=== PATIENT | male | born 1975 | race Caucasian/White ===

== ENCOUNTER 2017-02-03 16:23 | Emergency (ER) | payer BC ==
--- NOTE | 2017-02-03 16:21 | EDPHY ---
H & P Constitutional: Initial Vital Signs Temperature (C) 37.4 C 02/03/17 16:23 Heart Rate 84 02/03/17 16:23 Respiratory Rate 22 H 02/03/17 16:23 Blood Pressure 146/72 H 02/03/17 16:23 O2 Sat (%) 97 02/03/17 16:23 O2 Delivery Mode Room Air Allergies/Adverse Reactions: No Known Allergies Allergy (Unverified 07/30/16 20:07) Home Medications: Medication Instructions Recorded inFLIXimab [Remicade Inj 100 mg 0 mg IV .SEE COMMENTS 07/31/16 (*)] Acetaminophen [Tylenol ES 500 mg 1,000 mg PO Q6HRS PRN #0 tab 08/20/16 (*)] Atenolol [Tenormin 25 mg (*)] 12.5 mg PO BID #30 tab 08/20/16 FLUoxetine [Prozac 10 MG (*)] 10 mg PO DAILY #15 cap 08/20/16 FLUoxetine [Prozac 20 MG (*)] 20 mg PO DAILY #15 cap 08/20/16 Pantoprazole Sodium [Protonix 40mg 40 mg PO DAILY #15 tab 08/20/16 (*)] QUEtiapine FUMARATE [Seroquel 50 50 mg PO HS #15 tab 08/20/16 mg (*)] buPROPion XL [Wellbutrin 150mg XL] 150 mg PO DAILY #15 tab 08/20/16 predniSONE 20 mg PO DAILY #15 tab 08/20/16 Medical Decision Making ED Course/Re-evaluation: CHIEF COMPLAINT: Syncope. HISTORY OF PRESENT ILLNESS: The patient is a 41-year-old male presenting via EMS after a syncopal episode earlier today. He is alert and oriented on arrival. He describes feeling flushed and nauseated with visual dimming before letting himself to the floor and passing out. He did not hit his head. He also describes an episode of emesis and diarrhea prior to passing out. He has sharp abdominal pain but this is normal for his UC and IBS. He has a history of similar symptoms from these abdominal issues but has not passed out before. He denies fever, shortness of breath, chest pain, dizziness, or other complaints. EMS administered 4mg IV Zofran and 100ml IV Saline en route. REVIEW OF SYSTEMS: A 10 point review of systems was performed and is negative with the exception of the elements mentioned in the history of present illness. PHYSICAL EXAM: HR, BP, O2 Sat, RR. Temp noted General Appearance: Alert, well hydrated, appropriate, and non-toxic appearing. Head: Atraumatic without scalp tenderness or obvious injury Eyes: Pupils equal, round, reactive to light and accommodation, EOMI, no trauma , no injection. Ears: Clear bilaterally, no perforation, normal landmarks Nose: Atraumatic, no rhinorrhea, clear. Throat: There is no erythema or exudates, no lesions, normal tonsils, mucus membranes moist. Neck: Supple, 2+ carotid upstroke, nontender, no lymphadenopathy. Respiratory: No retractions, no distress, no wheezes, and no accessory muscle use. Lungs are clear to auscultation bilaterally. Cardiovascular: Regular rate and rhythm, no murmurs, rubs, or gallops. Bilateral carotid, radial, dorsalis pedis, and posterior tibial pulses intact. Good capillary refill all extremities. Gastrointestinal: Abdomen is soft, nontender, non-distended, no masses, no rebound, no guarding, no peritoneal signs. Musculoskeletal: Normal active ROM of all extremities, atraumatic. Neurological: Alert, appropriate, and interactive. The patient has normal DTRs and non-focal cranial nerves, motor, sensory, and cerebellar exam. Skin: No rashes, good turgor, no nodules on palpation. Past medical history:Ulcerative colitis, IS. Past surgical history:Denies. Family history:Non-contributory. Social history:Here alone. DIAGNOSTICS/PROCEDURES/CRITICAL CARE TIME: The 12 lead EKG was interpreted by myself. See hard copy and/or "tracemaster" electronic copy for interpretation. Sinus rhythm. Normal QT interval. Early repolarization. DIFFERENTIAL DIAGNOSIS: The differential diagnosis for the patient's syncope included but was not limited to vasovagal syncope, arrhythmia, dehydration, cardiogenic causes, neurogenic causes, and blood loss. MEDICAL DECISION MAKING: I met EMS on arrival and obtained a report from the sales representative electric service. 41-year-old male with a history of IBS and UC. He had a syncopal episode an hour prior to arrival. This was preceded by feeling flushed, visual dimming, nausea, vomiting , and diarrhea. He reports that this is similar to previous UC flare-ups but he does not usually pass out. In fact, he reports that his abdominal issues are improving and he has been taking less of his normal medications. He reports reduced blood in his stools. We will obtain an EKG and basic blood work. 4mg IV Zofran for nausea with 1L IV saline for hydration. I believe this most likely represents a vasovagal event. 1716: Patient's lab work is unremarkable. He is up and able to walk to the bathroom. He still feels a bit lightheaded. 1745: Reassessed patient. He is feeling completely better and is ready to go home. - Data Points Laboratory Results: Laboratory Results 02/03/17 16:25 02/03/17 16:25 02/03/17 02/03/17 16:25 16:25 WBC 7.53 10^3/uL 10^3/uL (3.80-9.50) RBC 5.03 10^6/uL 10^6/uL (4.40-6.38) Hgb 15.1 g/dL g/dL (13.7-17.5) Hct 43.3 % % (40.0-51.0) MCV 86.1 fL fL (81.5-99.8) MCH 30.0 pg pg (27.9-34.1) MCHC 34.9 g/dL g/dL (32.4-36.7) RDW 12.8 % % (11.5-15.2) Plt Count 304 10^3/uL 10^3/uL (150-400) MPV 8.9 fL fL (8.7-11.7) Neut % (Auto) 82.3 % H % (39.3-74.2) Lymph % (Auto) 13.3 % L % (15.0-45.0) Ness % (Auto) 2.9 % L % (4.5-13.0) Eos % (Auto) 0.0 % L % (0.6-7.6) Baso % (Auto) 0.4 % % (0.3-1.7) Nucleat RBC Rel Count 0.0 % % (0.0-0.2) Absolute Neuts (auto) 6.20 10^3/uL 10^3/uL (1.70-6.50) Absolute Lymphs (auto) 1.00 10^3/uL 10^3/uL (1.00-3.00) Absolute Monos (auto) 0.22 10^3/uL L 10^3/uL (0.30-0.80) Absolute Eos (auto) 0.00 10^3/uL L 10^3/uL (0.03-0.40) Absolute Basos (auto) 0.03 10^3/uL 10^3/uL (0.02-0.10) Absolute Nucleated RBC 0.00 10^3/uL 10^3/uL (0-0.01) Immature Gran % 1.1 % % (0.0-1.1) Immature Gran # 0.08 10^3/uL 10^3/uL (0.00-0.10) Sodium 140 mEq/L mEq/L (134-144) Potassium 4.0 mEq/L mEq/L (3.5-5.2) Chloride 102 mEq/L mEq/L (97-110) Carbon Dioxide 24 mEq/l mEq/l (22-31) Anion Gap 14 mEq/L mEq/L (8-16) BUN 12 mg/dL mg/dL (7-23) Creatinine 0.8 mg/dL mg/dL (0.7-1.3) Estimated GFR > 60 Glucose 117 mg/dL H mg/dL (70-100) Calcium 10.0 mg/dL mg/dL (8.5-10.4) Medications Given: Discontinued Medications Sodium Chloride (Ns) 1,000 mls @ 0 mls/hr IV ONCE ONE PRN Reason: Wide Open Stop: 02/03/17 16:30 Last Admin: 02/03/17 16:30 Dose: 1,000 mls Ondansetron HCl (Zofran) 4 mg IVP EDNOW ONE Stop: 02/03/17 16:30 Last Admin: 02/03/17 16:55 Dose: 4 mg Departure - Departure Disposition: Home, Routine, Self-Care Clinical Impression: Vasovagal syncope Condition: Good Instructions: Syncope (ED) Additional Instructions: Drink plenty of fluids and be sure to get rest. Follow up with your primary care provider this week for any continued symptoms. You have been provided the telephone number of the on-call outpatient doctor if you need one. Return to the emergency department if you experience any serious worsening of condition. Referrals: Nasreen Jacobs MD [Medical Doctor] - As per Instructions Report Scribed for: Butch Wakefield Report Scribed by: Micah Nassar Date of Report: 02/03/17 Time of Report: 16:31
[2017-02-03] MEDS ORDERED: ONDANSETRON 4 MG/2 ML VIAL IVP ONE (16:29)
[2017-02-03] MEDS ORDERED: NS 1,000 ML IV ONE (16:29)
--- NOTE | 2017-02-03 16:36 | CPEKG ---
Heart Rate: 64 RR Interval: 938 P-R Interval: 148 QRSD Interval: 82 QT Interval: 396 QTC Interval: 409 P [place]: 62 QRS [place]: 70 T Wave [place]: 63 EKG Severity - ABNORMAL ECG - EKG Impression: SINUS RHYTHM EKG Impression: ST ELEVATION SUGGESTS PERICARDITIS Electronically Signed By: Butch Wakefield 03-Feb-2017 22:11:09
[2017-02-03 16:52] LABS: % IMMATURE GRANULYOCYTES 1.1 % (0.0-1.1); ABSOLUTE IMMATURE GRANULOCYTES 0.08 10^3/uL (0.00-0.10); ADD DIFF? NO; ADD MORPH? NO; ADD SCAN? NO; ATYPICAL LYMPHOCYTE FLAG 10 (0-99); FRAGMENT RBC FLAG 20 (0-99); HEMATOCRIT 43.3 % (40.0-51.0); HEMOGLOBIN 15.1 g/dL (13.7-17.5); LEFT SHIFT FLG 10 (0-99); LIPEMIA HEMOLYSIS FLAG 90 (0-99); MEAN CELL HEMOGLOBIN CONCENTR. 34.9 g/dL (32.4-36.7); MEAN CELL VOLUME 86.1 fL (81.5-99.8); MEAN PLATELET VOLUME 8.9 fL (8.7-11.7); PLATELET CLUMPS FLAG 0 (0-99); PLATELET COUNT 304 10^3/uL (150-400); RED BLOOD CELL COUNT 5.03 10^6/uL (4.40-6.38); RED CELL DISTRIBUTION WIDTH 12.8 % (11.5-15.2)
[2017-02-03 16:53] LABS: ANION GAP 14 mEq/L (8-16); CARBON DIOXIDE 24 mEq/l (22-31); CHLORIDE 102 mEq/L (97-110); CREATININE 0.8 mg/dL (0.7-1.3); GLOMERULAR FILTRATION RATE > 60; GLUCOSE 117 mg/dL (70-100); SODIUM 140 mEq/L (134-144)
[2017-02-03 17:58] VITALS: BP 122/85; PULSE 75; RESP 18; TEMP 98.1; O2SAT 96
== END 2017-02-03 17:56 | disposition home or self-care (01) ==
LOC: EDUNIT#
DX: R55 Syncope and collapse (principal)
CPT/HCPCS: 96374; J2405

== ENCOUNTER → 2017-04-10 | Outpatient (CLI) | payer BC | LOC: FIMAGING 14:54 | PROVIDERS: ATTEND Physician Assistant | DX: R10.11 Right upper quadrant pain (principal) ==

== ENCOUNTER 2017-04-11 13:23 | Observation (INO) | payer BC ==
--- NOTE | 2017-04-11 13:32 | EDPHY ---
H & P Time Seen by Provider: 04/11/17 13:32 HPI/ROS: CHIEF COMPLAINT: Referred to ED from GI clinic HISTORY OF PRESENT ILLNESS: The patient is referred to the emergency department from the GI clinic for on abdominal pain. The patient has a history of ulcerative colitis which was diagnosed approximately 13 years ago. The patient reports he has been tapering on prednisone for approximately the past 2 months. The patient does receive her Remicade infusion every 8 weeks. The patient states that approximately 2 weeks ago he developed right upper quadrant and right rib pain. The patient reports a mild dry cough. The patient denies that this pain is reminiscent of his prior ulcerative colitis. The patient does report that his pain is worsened with palpation to the ribs as well as the abdomen. The patient denies any asymmetric calf pain or swelling. He denies additional complaints. The patient did have unremarkable laboratory studies and a right upper quadrant ultrasound performed yesterday. REVIEW OF SYSTEMS: A comprehensive 10 point review of systems is otherwise negative aside from elements mentioned in the history of present illness. Source: Patient - Personal History Tetanus Vaccine Date: within 10 years (approx 5 yrs) - Medical/Surgical History Hx Asthma: No Hx Chronic Respiratory Disease: No Hx Diabetes: No Hx Cardiac Disease: No Hx Renal Disease: No Hx Cirrhosis: No Hx Alcoholism: No Hx HIV/AIDS: No Hx Splenectomy or Spleen Trauma: No Other PMH: PMH- ulcerative colitis/gerd, DEPRESSION - Social History Smoking Status: Former smoker - Physical Exam Exam: General Appearance: Alert, no distress Eyes: Pupils equal and round no pallor or injection ENT, Mouth: Mucous membranes moist Respiratory: Tenderness to palpation right anterior chest wall Cardiovascular: Regular rate and rhythm Gastrointestinal: Tenderness to palpation right upper quadrant Neurological: A&O, normal motor function, normal sensory exam, normal cranial nerves Skin: Warm and dry, no rashes Musculoskeletal: Neck is supple nontender Extremities: symmetrical, full range of motion Constitutional: Initial Vital Signs Temperature (C) 36.7 C 04/11/17 13:33 Heart Rate 76 04/11/17 13:33 Respiratory Rate 18 04/11/17 13:33 Blood Pressure 105/72 04/11/17 13:33 O2 Sat (%) 97 04/11/17 13:33 O2 Delivery Mode Room Air Allergies/Adverse Reactions: No Known Allergies Allergy (Verified 04/11/17 13:31) Home Medications: Medication Instructions Recorded Acetaminophen [Tylenol 325mg (*)] 325 mg PO DAILY PRN 04/11/17 Cholecalciferol Vit D3 [Vitamin D3 2,000 units PO DAILY 04/11/17 (*)] FLUoxetine [Prozac 20 MG (*)] 60 mg PO DAILY 04/11/17 predniSONE 40 mg PO DAILY 04/11/17 Medical Decision Making - Diagnostics Imaging Results: Imaging Impressions Chest X-Ray 04/11/17 13:48 Impression: Normal. No rib fracture explanation for pain. ED Course/Re-evaluation: The patient presents to the ED with a one-week history of right upper quadrant and right chest wall pain. The patient does have tenderness to palpation in both the right upper quadrant and right chest wall. Patient's vital signs are noted to be stable. I reviewed the results of his laboratory studies from yesterday along with his ultrasound results. Patient was referred to the ED Gastroenterology for further workup including HIDA scan. The patient was taken for a stat chest x-ray which demonstrates no evidence of a rib fracture or pneumothorax. The patient's D-dimer is negative which I feel adequately excludes pulmonary embolism. The patient will be admitted to the hospitalist service for further evaluation of his symptoms per the request of the process control tech. Consultation was made with Dr. Lyons from the hospitalist service. The patient did receive IV fluids, pain medications and Zofran in the ED. Differential Diagnosis: Differential diagnosis considered includes cholelithiasis, cholecystitis, pneumothorax, pulmonary embolism, zoster, rib fracture - Data Points Laboratory Results: 04/11/17 13:50 D-Dimer < 0.27 ug/mLFEU ug/mLFEU (0.00-0.50) Medications Given: Discontinued Medications Morphine Sulfate (Morphine) 4 mg IVP EDNOW ONE Stop: 04/11/17 14:16 Last Admin: 04/11/17 14:15 Dose: 4 mg Departure - Departure Disposition: [facility] Acute Clinical Impression: Abdominal pain, Inflammatory bowel disease, Chest wall pain Condition: Fair
[2017-04-11] MEDS ORDERED: IBUPROFEN 600 MG TAB PO PRN (16:29)
[2017-04-11] MEDS ORDERED: ACETAMINOPHEN 325 MG TAB PO PRN (16:29)
[2017-04-11] MEDS ORDERED: ONDANSETRON DISINTEGRATING 4 MG TAB PO PRN (16:29)
[2017-04-11] MEDS ORDERED: HYDROmorphONE/DILAUDID 1 MG/ML SYR IVP PRN (16:30)
[2017-04-11] MEDS ORDERED: ONDANSETRON 4 MG/2 ML VIAL IVP PRN (16:54)
--- NOTE | 2017-04-11 17:02 | PDGENHP ---
History and Physical - Chief Complaint Acute abdominal pain - History of Present Illness Primary care provider: Dr. Sinha Primary chef concierge: [facility] HPI: 41 yo male presenting with acute abdominal pain characterized as 9/10 severity, attack, located in the right upper quadrant and right flank, onset of symptoms 7 days ago and duration has been intermittent thereafter. Pain is exacerbated by oral intake of solids and liquids as well as deep inspiration. The pain has been somewhat alleviated by pain medication (morphine) received in the emergency department. The patient reports that the location and character of the pain are significantly different than his ulcerative colitis pain. He reports that he had experienced ulcerative colitis flare in January and January was placed on high-dose steroids which have been progressively tapered thereafter. The patient reports that he adjusted his dosage from 60 mg daily to 40 mg daily of prednisone approximately 6 days ago and that his aforementioned pain in his right upper quadrant onset preceded that dose adjustment. 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 History Information - Allergies/Home Medication List Allergies/Adverse Reactions: No Known Allergies Allergy (Verified 04/11/17 13:31) Home Medications: Acetaminophen [Tylenol 325mg (*)] 325 mg PO DAILY PRN 04/11/17 [Last Taken Unknown] Cholecalciferol Vit D3 [Vitamin D3 (*)] 2,000 units PO DAILY 04/11/17 [Last Taken Unknown] FLUoxetine [Prozac 20 MG (*)] 60 mg PO DAILY 04/11/17 [Last Taken 04/10/17] predniSONE 40 mg PO DAILY 04/11/17 [Last Taken 04/10/17] I have personally reviewed and updated: family history, medical history, social history, surgical history - Past Medical History Additional medical history: Ulcerative colitis, currently on Remicade every 8 weeks, currently receiving a prolonged steroid taper. Depression. Gastroesophageal reflux disease - Surgical History Reports: no pertinent surgical hx - Family History Additional family history: No inflammatory bowel disease, he does have family history of coronary disease - Social History Smoking Status: Former smoker Alcohol Use: Occasionally Drug Use: Marijuana Additional social history: Independent in his ADLs, does not have a job which requires strenuous physical activity, he does not engage in heavy lifting but he does have a daughter approximately 22 lb he lifts regularly Review of Systems ROS: 10pt was reviewed & negative except for what was stated in HPI & below Gastrointestinal: Reports: abdominal pain Physical Exam Temp Pulse Resp BP Pulse Ox 36.6 C 72 20 116/69 92 04/11/17 16:09 04/11/17 16:09 04/11/17 16:09 04/11/17 16:09 04/11/17 16:09 Constitutional: appears nourished, uncomfortable, No not in pain (8-9/10 pain), No chronically ill appearing Eyes: PERRL, anicteric sclera, EOMI Ears, Nose, Mouth, Throat: hearing normal, ears appear normal, no oral mucosal ulcers, other (Tacky mucous membranes) Cardiovascular: regular rate and rhythym, no murmur, rub, or gallop, No edema Respiratory: no respiratory distress, no rales or rhonchi, clear to auscultation , other (Reduced inspiratory effort) Gastrointestinal: normoactive bowel sounds, tenderness (Right upper quadrant and right flank, no tenderness to palpation in the right lower quadrant, mild tenderness in the midepigastric area to moderate depth palpation), No guarding, No distension Skin: other (No ecchymoses or erythema over the right upper quadrant) Neurologic: AAOx3, No facial droop Psychiatric: interacting appropriately, not anxious, not encephalopathic, thought process linear Lab Data & Imaging Review D-Dimer < 0.27 ug/mLFEU (0.00-0.50) 04/11/17 13:50 Visualized and Interpreted Chest x-ray results: Yes Chest X-Ray results: other (No evidence of rib fracture on the right, no right lower lobe airspace disease) Assessment & Plan Assessment: 41-year-old male presenting with acute abdominal pain in the setting of inflammatory bowel disease, ulcerative colitis Plan: 1. Abdominal pain. Acute, new problem this provider, further workup indicated. Potential etiologies include gallbladder obstruction versus identified bowel pathology on the right with possible expansion of ulcerative colitis -suspect leukocytosis secondary to stress demargination in the setting -the patient reports that his present location and character pain are different than his historical left lower quadrant pain from ulcerative colitis -will get a HIDA scan to evaluate biliary function -if HIDA scan negative, would recommend CT with oral and IV contrast at that time -will get GI consultation -treat supportively with Dilaudid, as-needed NSAIDs, as needed antiemetics -continue IV fluids, clear liquid diet -apply heat pad and Lidoderm patch 2. Ulcerative colitis. Chronic, currently on prolonged steroid taper as well as outpatient Remicade -do not suspect this is currently an ulcerative colitis flare given the difference in location and character as well as negative CRP and ESR -that said, it should be noted that on review of outside lab records from January, the patient's sed rate and CRP were also within normal limits when he reportedly experienced his classic ulcerative colitis flare and received high- dose steroids with prolonged taper 3. Depression. Reviewed outside records including 08/21/[address] Green, she reported increasing the patient's Prozac at that time utilizing as-needed Seroquel 50 mg at bedtime if the patient experiences difficulty sleeping Diet. Clear liquids next prophylaxis. Low risk patient, SCDs Code. Full Disposition. Anticipated discharge is 04/12/2017, pending further workup and effective treatment of conditions as outlined above. I have discussed the patient's presentation with Dr. Jeffery Vizcarra, we agreed the patient is safe for the EACU.
[2017-04-11] MEDS: predniSONE 20 MG TAB PO SCH (17:28)
[2017-04-11] MEDS: FLUoxetine 20 MG CAP PO SCH (17:28)
[2017-04-11] MEDS: KETOROLAC 15 MG/1 ML SDV IVP PRN (17:29)
[2017-04-11] MEDS: LIDOCAINE 5% 1 EA PATCH TD SCH (17:29)
[2017-04-11] MEDS: PROMETHAZINE HCL 25 MG TAB PO PRN (17:42)
[2017-04-11] MEDS: PATCH REMOVAL 1 EA PATCH TD SCH (19:31)
[2017-04-12] MEDS: KETOROLAC 15 MG/1 ML SDV IVP PRN ×3 (00:24→12:11)
[2017-04-12] MEDS: NS 1,000 ML IV SCH ×2 (00:30→05:32)
[2017-04-12 05:38] LABS: ADD DIFF? YES; ADD MORPH? NO; ADD SCAN? NO; ATYPICAL LYMPHOCYTE FLAG 0 (0-99); FRAGMENT RBC FLAG 0 (0-99); HEMATOCRIT 40.7 % (40.0-51.0); HEMOGLOBIN 13.8 g/dL (13.7-17.5); LEFT SHIFT FLG 30 (0-99); LIPEMIA HEMOLYSIS FLAG 90 (0-99); MEAN CELL HEMOGLOBIN 29.9 pg (27.9-34.1); MEAN CELL HEMOGLOBIN CONCENTR. 33.9 g/dL (32.4-36.7); MEAN CELL VOLUME 88.3 fL (81.5-99.8); MEAN PLATELET VOLUME 8.8 fL (8.7-11.7); PLATELET CLUMPS FLAG 0 (0-99); PLATELET COUNT 197 10^3/uL (150-400); RED BLOOD CELL COUNT 4.61 10^6/uL (4.40-6.38)
[2017-04-12 05:55] LABS: ALANINE AMINOTRANSFERASE 39 IU/L (21-72); ALBUMIN 3.2 g/dL (3.5-5.0); ALKALINE PHOSPHATASE 36 IU/L (38-126); ANION GAP 4 mEq/L (8-16); ASPARTATE AMINOTRANSFERASE 19 IU/L (17-59); BILIRUBIN,TOTAL 0.6 mg/dL (0.1-1.4); CALCIUM 8.4 mg/dL (8.5-10.4); CARBON DIOXIDE 25 mEq/l (22-31); CHLORIDE 107 mEq/L (97-110); CREATININE 0.6 mg/dL (0.7-1.3); GLOMERULAR FILTRATION RATE > 60; GLUCOSE 98 mg/dL (70-100); POTASSIUM 4.8 mEq/L (3.5-5.2); SODIUM 136 mEq/L (134-144); TOTAL PROTEIN 5.7 g/dL (6.3-8.2)
[2017-04-12 06:10] LABS: PLATELET ESTIMATE ADEQUATE (ADEQ)
[2017-04-12] MEDS: PROMETHAZINE HCL 25 MG TAB PO PRN (12:15)
[2017-04-12] MEDS: HYDROmorphONE/DILAUDID 2 MG TAB PO PRN ×3 (13:04→23:00)
[2017-04-12] MEDS: LIDOCAINE 5% 1 EA PATCH TD SCH (13:05)
[2017-04-12 14:47] LABS: COLOR YELLOW; LEUKOCYTE ESTERASE,URINE NEGATIVE (NEGATIVE); NITRITE,URINE NEGATIVE (NEGATIVE)
[2017-04-12] MEDS ORDERED: IOPAMIDOL (ISOVUE-300) 100 ML BTL ONE (16:27)
[2017-04-12] MEDS ORDERED: BUPIVACAINE/EPI 0.5% 30 ML SDV ONE (18:09)
[2017-04-12] MEDS: FLUoxetine 20 MG CAP PO SCH ×2 (18:10→23:22)
[2017-04-12] MEDS: CHOLECALCIFEROL VIT D3 1,000 UNITS TAB PO SCH (18:10)
[2017-04-12] MEDS: predniSONE 20 MG TAB PO SCH (18:11)
--- NOTE | 2017-04-12 18:11 | HOSPPROG ---
Hospitalist Progress Note Assessment/Plan: The patient is a 41-year-old male with PMH ulcerative colitis who was admitted for right upper quadrant abdominal pain/right flank pain. ASSESSMENT/PLAN: Acute appendicitis Right upper quadrant abdominal pain Right flank pain Ulcerative colitis, not in acute flare Depression -Checked UA - ruled out blood in urine, as kidney stone was in DDx. -CT abd demonstrated appendicitis -Dr. Hernandez - Gen Surg - consulted - lap appendectomy tonight. -NPO, resume IVF. -Planning for colonoscopy this week with his GI doctor - re: UC poorly controlled diarrhea. -Discussed that patients w/ UC can have PSC, but patient has no other lab abnormalities to suggest that. VTE prophylaxis: Ambulatory GI prophylaxis: Not needed Code Status: Full Status: Inpatient for 2 midnight stay. Disposition: [facility] with discharge anticipated tomorrow after surgery. ____ SUBJECTIVE: The patient continues to complain of right upper quadrant abdominal pain, right flank pain, right shoulder blade pain. No nausea or vomiting. OBJECTIVE: Physical Exam: General: The patient is a male who is alert fatigued-appearing and in no acute distress. HEENT: normocephalic, extraocular movements intact, conjunctivae clear. Mucous membranes moist. Neck: trachea midline, no visible masses. CV: +S1/S2, RRR, no MRG. Resp: unlabored, CTAB no RRW. Abd: soft and nondistended. Bowel sounds present. tender right upper quadrant, right lower ribcage. Musculoskeletal: Normal muscle tone/bulk. Normal gait. Tenderness of right scapula, right flank. Neuro: cranial nerves II XII grossly intact. Intact gross motor and sensory function. Psych: Appropriate mood and appropriate affect. Skin: No pallor. No petechiae. Heme/lymph: No peripheral edema at bilateral lower extremities. Labs/Imaging/Other Tests: Personally reviewed/interpreted. CT Abd w/ contrast - early appendicitis. This patient is new to me. Reviewed patient's chart/records for this visit. Personally discussed case with RNs, radiologist, general surgeon. Objective: Vital Signs Temp Pulse Resp BP Pulse Ox 36.6 C 63 18 107/68 96 04/12/17 15:59 04/12/17 15:59 04/12/17 15:59 04/12/17 15:59 04/12/17 15:59 Laboratory Results 04/12/17 04:45 05/13/17 04:45 04/11/17 04/12/17 04/13/17 05:59 05:59 05:59 Intake Total 3158 Balance 3158 - Time Spent With Patient Time Spent with Patient: greater than 35 minutes Time Spent with Patient: Greater than 35 minutes spent on this patients care, greater than 50% of time spent counseling, educating, and coordinating care regarding the above mentioned plan. - Pending Discharge Pending Discharge Within 24 Hours: Yes Pending Discharge Date: 04/13/17 Pending Discharge Time: 11:00 ICD10 Worksheet Patient Problems: Problems Problem Status Onset Abdominal pain Acute Chest wall pain Acute Inflammatory bowel disease Acute Depression Acute Suicidal ideation Acute
[2017-04-12] MEDS ORDERED: MIDAZOLAM 2 MG/2 ML VIAL ONE (18:36)
[2017-04-12] MEDS ORDERED: fentaNYL 100 MCG/2 ML INJ ONE ×2 (18:39→19:32)
[2017-04-12] MEDS ORDERED: PROPOFOL 200 MG/20 ML VIAL ONE (18:39)
[2017-04-12] MEDS ORDERED: ROCURONIUM 50 MG/5 ML VIAL ONE (18:40)
[2017-04-12] MEDS ORDERED: SUGAMMADEX SODIUM 200 MG/2 ML VIAL IVP ONE (18:40)
[2017-04-12] MEDS ORDERED: ONDANSETRON 4 MG/2 ML VIAL ONE (18:40)
[2017-04-12] MEDS ORDERED: LIDOCAINE 2% 5 ML SDV ONE (18:40)
[2017-04-12] MEDS ORDERED: DEXAMETHASONE 4 MG/ML VIAL ONE ×2 (18:40)
[2017-04-12] MEDS ORDERED: KETOROLAC 30 MG/1 ML SDV ONE (18:52)
--- NOTE | 2017-04-12 19:03 | GHP ---
[f rep st] PREOP HISTORY AND PHYSICAL DATE OF ADMISSION: 04/11/2017 REASON FOR EVALUATION: Acute appendicitis. HISTORY OF PRESENT ILLNESS: 41-year-old male with a significant history for ulcerative colitis. He has been maintained on Remicade and prednisone for multiple years. He has been on a long steroid taper since January for a chronic flare, mostly inclusive of left lower quadrant pain and intermittent bloody bowel movements. He does report intermittent nighttime fevers and chills, none of which have been worsening over the last couple of months. He presented to the hospital last evening with a 1-week history of right upper quadrant pain as well as right back pain. He initially thought might be related to a kidney stone. He was initially worked up inclusive of right upper quadrant ultrasound and HIDA imaging, all showing normal gallbladder anatomy. Subsequent CT scan was performed this afternoon, disclosing a dilated appendix with periappendiceal inflammatory change. Surgery has been requested for further treatment recommendations. One quasi similar episode of pain 2 years prior of less intensity. He does note that the car ride was especially uncomfortable over bumps. He is minimally hungry at present time. PAST MEDICAL HISTORY: Ulcerative colitis, depression, GERD. PAST SURGICAL HISTORY: PE tube placement. MEDICATIONS: Remicade, prednisone 40 mg, Prozac, vitamin D, Tylenol. ALLERGIES: No known allergies. SOCIAL HISTORY: No significant alcohol or tobacco. He is currently . He has 6 children. 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 REVIEW OF SYSTEMS: Notable for chronic abdominal pain, blood per rectum, and intermittent joint aches. No other ulcerative colitis related sequelae. 10- point system otherwise unremarkable. FAMILY HISTORY: Noncontributory. PHYSICAL EXAMINATION: VITALS: Temperature 36.6, blood pressure 107/68, pulse 63, respirations 18. GENERAL: The patient is alert, appropriate, pale in appearance. HEENT: Anicteric. No cervical or supraclavicular lymphadenopathy. HEART: Regular. LUNGS: Clear. ABDOMEN : Significant right -sided tenderness without rebound or guarding. Negative Rovsing sign. Negative obturator sign. EXTREMITIES: Unremarkable. NEUROLOGIC: Unremarkable. SKIN: With a 1 cm seborrheic keratosis to the midepigastrium. LABORATORY DATA: White count 9.5, hemoglobin 14, platelets of 200. Electrolytes within reference range. Liver enzymes within reference range. CT images directly reviewed on PACS. 10 mm appendix noted with mild periappendiceal inflammatory change. No free fluid. No free air. HIDA scan: 42% gallbladder ejection fraction. Right upper quadrant ultrasound with multiple gallbladder polyps measured between 2 and 4 mm with a stable right hepatic cyst. IMPRESSION: 1. Early appendicitis. 2. Ulcerative colitis. 3. Gallbladder polyps. RECOMMENDATIONS: 1. Recommend proceeding with laparoscopic appendectomy. The risks, benefits were explained of bleeding, infection, open conversion, as well as alternative diagnoses. He has requested that his abdominal wall skin lesion be excised concurrently. Surgical risks and benefits, as well as anticipated recovery reviewed. All questions entertained. Will proceed this evening. 2. Regarding his small benign appearing gallbladder polyps, no further workup warranted at this point in time. /[id number]/MODL MTDD
[2017-04-12] MEDS ORDERED: HYDROmorphONE/DILAUDID 1 MG/ML SYR ONE (20:05)
[2017-04-12] MEDS ORDERED: HYDROmorphONE/DILAUDID 1 MG/ML SYR IVP PRN (20:24)
--- NOTE | 2017-04-12 20:24 | POSTOPPROG ---
Post Op Note Date of Operation: 04/12/17 Surgeon: Israel Hernandez Anesthesiologist: Vidya Anesthesia: GET(General Endotracheal) Pre-op Diagnosis: acute appendicitis Post-op Diagnosis: same Procedure: lap appy Inf/Abcess present in the surg proc area at time of surgery?: Yes Depth: Organ Space EBL: Minimal Complications: no immediate Specimen(s): appendix
--- NOTE | 2017-04-12 20:40 | GOP ---
[f rep st] OPERATIVE REPORT DATE OF OPERATION: 04/12/2017 SURGEON: Israel Hernandez MD ANESTHESIA: General. ANESTHESIOLOGIST: Dr. Dasilva. PREOPERATIVE DIAGNOSIS: Acute appendicitis, multiple abdominal wall skin lesion. POSTOPERATIVE DIAGNOSIS: Acute appendicitis, multiple abdominal wall skin lesion. PROCEDURE PERFORMED: 1. Laparoscopic appendectomy. 2. Excision of abdominal wall skin lesions. FINDINGS: As below. INDICATIONS: 41-year-old male with acute appendicitis. He is undergoing a laparoscopic appendectomy at this time. Risks and benefits were explained of bleeding, infection, open conversion, as well as alternative diagnoses. All questions were entertained. He desires to proceed. The patient has multiple central abdominal wall clinical keratoses in line with necessary trocar incision placements. These will be excised simultaneously. DESCRIPTION OF PROCEDURE: General anesthesia was induced. The abdomen was preinjected with 0.5% Marcaine with epinephrine. A curvilinear infraumbilical incision was created. The midline fascia was opened vertically. A 10 mm trocar was placed under direct visualization. The abdomen was insufflated to 15 mmHg. Two additional 5 mm ports were placed, one in the right lower mid abdomen and the other within the left lower quadrant. Three overlying keratoses were present at these sites. These were all excised using electrocautery and sent as separate specimens prior to 5 mm trocar placements. The appendix was acutely thickened without suppuration or perforation. The mesoappendix was divided with the Harmonic Scalpel. The base was transected flush with the cecum with an endoscopic ZHEN stapler. The specimen was brought through the umbilical port site intact using an EndoCatch pouch. Satisfactory hemostasis was assured. The right upper quadrant was explored showing a normal liver with a small simple-appearing hepatic cyst as well as a normal-appearing gallbladder without thickening or pericholecystic fluid. Trocars were removed under direct visualization. The infraumbilical midline fascia was closed with running Vicryl suture. The wounds were closed with Monocryl followed by Dermabond. The patient was taken to recovery uneventfully. /[id number]/MODL MTDD
[2017-04-12] MEDS: HYDROCODONE/APAP 5/325 TAB PO PRN (21:29)
[2017-04-12] MEDS: FAMOTIDINE 20 MG TAB PO SCH (21:29)
[2017-04-13 00:38] VITALS: RESP 16
[2017-04-13] MEDS: HYDROCODONE/APAP 5/325 TAB PO PRN ×3 (01:33→10:06)
[2017-04-13] MEDS: PATCH REMOVAL 1 EA PATCH TD SCH (02:00)
[2017-04-13] MEDS: HYDROmorphONE/DILAUDID 2 MG TAB PO PRN ×3 (03:08→11:33)
[2017-04-13 07:32] VITALS: BP 111/74; PULSE 63; TEMP 97.8; O2SAT 96
[2017-04-13] MEDS: LIDOCAINE 5% 1 EA PATCH TD SCH (08:00)
--- NOTE | 2017-04-13 08:17 | SOAPPROG ---
SOAP Progress Note Assessment/Plan: Assessment:no c/o. min further abdominal pain. mild residual costal discomfort - improved as well. avss. abd soft, incis clean. doing well. home today. d/ w hospitalist service. Plan: 04/13/17 08:16 Objective: Vital Signs Temp Pulse Resp BP Pulse Ox 36.6 C 63 16 111/74 96 04/13/17 07:30 04/13/17 07:30 04/13/17 07:30 04/13/17 07:30 04/13/17 07:30 Laboratory Results 04/12/17 04:45 04/12/17 04:45 04/12/17 04/13/17 04/14/17 05:59 05:59 05:59 Intake Total 3152 2450 Output Total 10 Balance 3150 4868 ICD10 Worksheet Patient Problems: Problems Problem Status Onset Abdominal pain Acute Chest wall pain Acute Inflammatory bowel disease Acute Depression Acute Suicidal ideation Acute
--- NOTE | 2017-04-13 08:30 | GDS ---
[f rep st] DISCHARGE SUMMARY REASON FOR ADMISSION: Acute appendicitis. HISTORY: A 41-year-old male with a significant history for ulcerative colitis. He presents with a 1-week history of right upper quadrant abdominal pain. HOSPITAL COURSE: Initial workup for gallbladder pathology was nonrevealing. A subsequent CT scan d isclosed early appendicitis. He underwent uncomplicated laparoscopic appendectomy. He was discharged to home the following day in a significantly improved condition. His generalized abdominal pain had resolved. He had minimal residual right-sided subcostal discomfort which was mar kedly improved. He will be seen in followup by Dr. Hernandez in 1-2 weeks. He was to resume all pre-hosp ital medications. He was given prescriptions for [place] as needed for discomfort. Full discharge in structions were explained prior to leaving. /[id number]/MODL
[2017-04-13] MEDS: CHOLECALCIFEROL VIT D3 1,000 UNITS TAB PO SCH (09:24)
[2017-04-13] MEDS: predniSONE 20 MG TAB PO SCH (09:25)
[2017-04-13] MEDS: FAMOTIDINE 20 MG TAB PO SCH (09:33)
[2017-04-13] MEDS: FLUoxetine 20 MG CAP PO SCH ×2 (10:05→10:06)
== END 2017-04-13 12:00 | disposition home or self-care (01) ==
LOC: F1N 15:46 → FOB 04-12 20:24
PROVIDERS: ADMIT Internal Medicine; ATTEND Internal Medicine
PROC: 0DTJ4ZZ Resection of Appendix, Percutaneous Endoscopic Approach (ICD-10-PCS; principal; 2017-04-11)
DX: K35.80 Unspecified acute appendicitis (principal); K51.90 Ulcerative colitis, unspecified, without complications; Z79.52 Long term (current) use of systemic steroids; K21.9 Gastro-esophageal reflux disease without esophagitis; Z87.891 Personal history of nicotine dependence
CPT/HCPCS: 44970; 71020; 74160; 78227; A9537; C1727; G0378; 96374; J1100; J1170; J1885; J2250; J2405; J2704; J3010; Q9967

== ENCOUNTER 2017-04-23 12:42 | Inpatient (IN) | payer BC ==
--- NOTE | 2017-04-23 13:00 | EDPHY ---
H & P Stated Complaint: appy 1 week ago/pt with intractible n/v constipation - Personal History Current Tetanus/Diphtheria Vaccine: Yes Tetanus Vaccine Date: within 10 years (approx 5 yrs) - Medical/Surgical History Hx Asthma: No Hx Chronic Respiratory Disease: No Hx Diabetes: No Hx Cardiac Disease: No Hx Renal Disease: No Hx Cirrhosis: No Hx Alcoholism: No Hx HIV/AIDS: No Hx Splenectomy or Spleen Trauma: No Other PMH: PMH- ulcerative colitis/gerd, DEPRESSION - Social History Smoking Status: Former smoker Time Seen by Provider: 04/23/17 12:59 HPI/ROS: CHIEF COMPLAINT: Abdominal pain HISTORY OF PRESENT ILLNESS: 41-year-old male postop day [address] Israel Hernandez arrives via private vehicle complaining of abdominal pain, vomiting, retching since 3:00 a.m. today. He notes that 2 days ago he had mild abdominal pain without the retching. Pain seems to be in the right upper quadrant. No back or flank pain. No urinary abnormality. No dyspnea no cough. PRIMARY CARE PROVIDER: REVIEW OF SYSTEMS: A ten point review of systems was performed and is negative with the exception of the items mentioned in the HPI PAST MEDICAL & SURGICAL HISTORY: Ulcerative colitis. Postop day 9 appendectomy SOCIAL HISTORY: nonsmoker PHYSICAL EXAM (Prior to examination, patient consented to physical exam, hands were washed and my usual and customary physical exam procedures followed) 1) GENERAL: Well-developed, well-nourished, alert and oriented. Appears uncomfortable, guarding abdomen, retching . 2) HEAD: Normocephalic, atraumatic 3) HEENT: Pupils equal, round, reactive to light bilaterally. Sclera anicteric. 4) NECK: Full range of motion, no meningeal signs. 5) LUNGS: Clear auscultation bilaterally, no wheezes, no rhonchi, no retractions. 6) HEART: Regular rate and rhythm, no murmur, no heave, no gallop. 7) ABDOMEN: guarding abdomen, diffusely tender to palpation all quadrants. Abdomen is flat. , 8) MUSCULOSKELETAL: Moving all extremities, no focal areas of tenderness, no obvious trauma. No peripheral edema or discoloration. 9) BACK: No CVA tenderness. 10) SKIN: No rash, no petechiae. 11) : Normal male external genitalia bilateral cremasteric reflex present and brisk. no high-riding testicle, no tenderness DIFFERENTIAL DIAGNOSIS: in no particular order including but not limited to acute cholecystitis, intra-abdominal abscess, ulcerative colitis exacerbation (Yuan Villagomez) Constitutional: Initial Vital Signs Temperature (C) 36.8 C 04/23/17 12:50 Heart Rate 63 04/23/17 12:50 Respiratory Rate 26 H 04/23/17 12:50 Blood Pressure 112/77 04/23/17 12:50 O2 Sat (%) 100 04/23/17 12:50 O2 Delivery Mode Nasal Cannula O2 (L/minute) 2 Allergies/Adverse Reactions: No Known Allergies Allergy (Verified 04/23/17 12:47) Home Medications: Medication Instructions Recorded FLUoxetine [Prozac 20 MG (*)] 60 mg PO DAILY 04/11/17 predniSONE 40 mg PO DAILY 04/11/17 Esomeprazole Magnesium [Nexium] 20 mg PO DAILY 04/23/17 Medical Decision Making - Diagnostics Imaging Results: Imaging Impressions Abdomen CT 04/23/17 13:33 Impression: 1. Recent appendectomy without evidence of abscess, fluid collection, or pneumoperitoneum. 2. Hepatic cysts without hepatic abscess. Findings and recommendations discussed with Emergency Department physician, Jose Angel Villagomez PA-C at 1408 hours on April 23, 2017. Final report concurs with initial preliminary interpretation. Images reviewed by myself (Yuan Villagomez) ED Course/Re-evaluation: 2:17 p.m.: Re-evaluation, discussed his imaging results showing no evidence of intra-abdominal abscess or definitive pathology for his pain. He continues to retch is complaining of continued pain. Will contact Dr. Israel Hernandez re- evaluated. 2:20 p.m.: Phone consultation with Dr. Israel Hernandez, explained the CT findings showing no intra-abdominal pathology such as intra-abdominal abscess. Dr. Hernandez thinks unlikely surgical etiology for his symptoms. Care this patient's discussed with secondary supervising physician Dr. Gilda Eckert 3:15 p.m.: Re-evaluation after IV ketamine, patient continues to retching complaining of intractable pain and vomiting. Will administer IV Haldol and re- evaluate. 4:07 p.m.: Patient re-evaluated. He has received IV ketamine, IV Haldol, Zofran, Reglan, continues to complain of intractable abdominal pain intractable vomiting and retching. 4:13 p.m.: Phone consultation with hospitalist Dr. John Varghese who will admit patient for intractable vomiting and abdominal pain of unclear etiology (Yuan Villagomez) Other Provider: The patient was evaluated and managed by the physician autopsy assistant. I have reviewed this chart and I agree with the findings and plan of care as documented , as indicated by my signature. I am the secondary supervising physician. ( Gilda Eckert) - Data Points Laboratory Results: Laboratory Results 04/23/17 13:06 04/23/17 13:06 04/23/17 04/23/17 04/23/17 13:06 13:06 13:06 WBC 14.53 10^3/uL H 10^3/uL (3.80-9.50) RBC 5.68 10^6/uL 10^6/uL (4.40-6.38) Hgb 17.3 g/dL g/dL (13.7-17.5) Hct 48.7 % % (40.0-51.0) MCV 85.7 fL fL (81.5-99.8) MCH 30.5 pg pg (27.9-34.1) MCHC 35.5 g/dL g/dL (32.4-36.7) RDW 12.7 % % (11.5-15.2) Plt Count 320 10^3/uL 10^3/uL (150-400) MPV 8.7 fL fL (8.7-11.7) Neut % (Auto) Not Reported Lymph % (Auto) Not Reported [place] % (Auto) Not Reported Eos % (Auto) Not Reported Baso % (Auto) Not Reported Nucleat RBC Rel Count 0.0 % % (0.0-0.2) Absolute Neuts (auto) Not Reported Absolute Lymphs (auto) Not Reported Absolute Monos (auto) Not Reported Absolute Eos (auto) Not Reported Absolute Basos (auto) Not Reported Absolute Nucleated RBC 0.00 10^3/uL 10^3/uL (0-0.01) Immature Gran % Not Reported Seg Neutrophils % 67 % % Band Neutrophils % 1 % % Lymphocytes % 22 % % Monocytes % 7 % % Eosinophils % 2 % % Metamyelocytes % 1 % % Immature Gran # Not Reported Absolute Seg Neuts 9.74 10^/uL H 10^/uL (1.70-6.50) Absolute Band Neuts 0.15 10^3/uL 10^3/uL (0.00-0.70) Absolute Lymphocytes 3.20 10^3/uL H 10^3/uL (1.00-3.00) Absolute Monocytes 1.02 10^3/uL H 10^3/uL (0.30-0.80) Absolute Eosinophils 0.29 10^3/uL 10^3/uL (0.03-0.40) Absolute Metamyelocyte 0.15 10^3/mL H 10^3/mL (0.00-0.00) RBC/WBC/PLT Morphology NORMAL (NORMAL) Platelet Estimate ADEQUATE (ADEQ) D-Dimer < 0.27 ug/mLFEU ug/mLFEU (0.00-0.50) Sodium 142 mEq/L mEq/L (134-144) Potassium 4.3 mEq/L mEq/L (3.5-5.2) Chloride 105 mEq/L mEq/L (97-110) Carbon Dioxide 18 mEq/l L mEq/l (22-31) Anion Gap 19 mEq/L H mEq/L (8-16) BUN 12 mg/dL mg/dL (7-23) Creatinine 0.9 mg/dL mg/dL (0.7-1.3) Estimated GFR > 60 Glucose 166 mg/dL H mg/dL (70-100) Calcium 10.8 mg/dL H mg/dL (8.5-10.4) Phosphorus 2.5 mg/dL mg/dL (2.5-4.5) Total Bilirubin 1.5 mg/dL H mg/dL (0.1-1.4) Conjugated Bilirubin 0.5 mg/dL mg/dL (0.0-0.5) Unconjugated Bilirubin 1.0 mg/dL mg/dL (0.0-1.1) AST 25 IU/L IU/L (17-59) ALT 40 IU/L IU/L (21-72) Alkaline Phosphatase 61 IU/L IU/L (38-126) Total Protein 8.2 g/dL g/dL (6.3-8.2) Albumin 5.3 g/dL H g/dL (3.5-5.0) Lipase 133.0 IU/L IU/L (23-300) Medications Given: Discontinued Medications Haloperidol Lactate (Haldol Injection) 2.5 mg IVP EDNOW ONE Stop: 04/23/17 15:04 Last Admin: 04/23/17 15:09 Dose: 2.5 mg Hydromorphone HCl (Dilaudid) 1 mg IVP ONCE ONE Stop: 04/23/17 17:05 Last Admin: 04/23/17 17:06 Dose: 1 mg Sodium Chloride (Ns) 1,000 mls @ 0 mls/hr IV ONCE ONE PRN Reason: Wide Open Stop: 04/23/17 13:36 Last Admin: 04/23/17 13:53 Dose: 1,000 mls Sodium Chloride (Ns) 1,000 mls @ 0 mls/hr IV ONCE ONE PRN Reason: Wide Open Stop: 04/23/17 15:05 Last Admin: 04/23/17 15:09 Dose: 1,000 mls Ketamine HCl (Ketamine) 14.5 mg 0.2 mg/kg (14.5 mg) IVP EDNOW ONE Stop: 04/23/17 14:22 Last Admin: 04/23/17 14:30 Dose: 14.5 mg Lorazepam (Ativan Injection) 1 mg IVP EDNOW ONE Stop: 04/23/17 13:17 Last Admin: 04/23/17 13:34 Dose: 1 mg Magnesium Citrate (Magnesium Citrate) 300 ml PO ONCE STA Stop: 04/23/17 21:43 Last Admin: 04/23/17 22:12 Dose: 300 ml Metoclopramide HCl (Reglan Injection) 10 mg IVP EDNOW ONE Stop: 04/23/17 13:17 Last Admin: 04/23/17 13:34 Dose: 10 mg Ondansetron HCl (Zofran) 4 mg IVP EDNOW ONE Stop: 04/23/17 14:54 Last Admin: 04/23/17 14:54 Dose: 4 mg Departure - Departure Disposition: [facility] Acute Clinical Impression: Intractable abdominal pain Intractable vomiting Qualifiers: Vomiting type: unspecified Nausea presence: with nausea Qualified Code(s): R11.2 - Nausea with vomiting, unspecified Condition: Fair
[2017-04-23] MEDS ORDERED: ONDANSETRON 4 MG/2 ML VIAL ONE (13:08)
[2017-04-23] MEDS ORDERED: LORazepam 2 MG/ML INJ IVP ONE (13:16)
[2017-04-23] MEDS ORDERED: METOCLOPRAMIDE 10 MG/2 ML VIAL IVP ONE (13:16)
[2017-04-23 13:22] LABS: ADD DIFF? YES; ADD MORPH? NO; ADD SCAN? NO; ATYPICAL LYMPHOCYTE FLAG 0 (0-99); FRAGMENT RBC FLAG 0 (0-99); HEMATOCRIT 48.7 % (40.0-51.0); HEMOGLOBIN 17.3 g/dL (13.7-17.5); LEFT SHIFT FLG 40 (0-99); LIPEMIA HEMOLYSIS FLAG 90 (0-99); MEAN CELL HEMOGLOBIN 30.5 pg (27.9-34.1); MEAN CELL HEMOGLOBIN CONCENTR. 35.5 g/dL (32.4-36.7); MEAN CELL VOLUME 85.7 fL (81.5-99.8); MEAN PLATELET VOLUME 8.7 fL (8.7-11.7); PLATELET CLUMPS FLAG 20 (0-99); PLATELET COUNT 320 10^3/uL (150-400); RED BLOOD CELL COUNT 5.68 10^6/uL (4.40-6.38); RED CELL DISTRIBUTION WIDTH 12.7 % (11.5-15.2)
[2017-04-23 13:31] LABS: ALANINE AMINOTRANSFERASE 40 IU/L (21-72); ALBUMIN 5.3 g/dL (3.5-5.0); ALKALINE PHOSPHATASE 61 IU/L (38-126); ANION GAP 19 mEq/L (8-16); ASPARTATE AMINOTRANSFERASE 25 IU/L (17-59); BILIRUBIN,TOTAL 1.5 mg/dL (0.1-1.4); BILIRUBIN-CONJUGATED 0.5 mg/dL (0.0-0.5); CALCIUM 10.8 mg/dL (8.5-10.4); CARBON DIOXIDE 18 mEq/l (22-31); CHLORIDE 105 mEq/L (97-110); CREATININE 0.9 mg/dL (0.7-1.3); GLOMERULAR FILTRATION RATE > 60; GLUCOSE 166 mg/dL (70-100); POTASSIUM 4.3 mEq/L (3.5-5.2); SODIUM 142 mEq/L (134-144); TOTAL PROTEIN 8.2 g/dL (6.3-8.2)
[2017-04-23] MEDS ORDERED: NS 1,000 ML IV ONE ×2 (13:35→15:04)
[2017-04-23] MEDS ORDERED: IOPAMIDOL (ISOVUE-300) 100 ML BTL ONE (13:40)
[2017-04-23 13:57] LABS: PLATELET ESTIMATE ADEQUATE (ADEQ)
[2017-04-23] MEDS ORDERED: KETAMINE 100 MG/10 ML SYR IVP ONE (14:21)
[2017-04-23] MEDS ORDERED: ONDANSETRON 4 MG/2 ML VIAL IVP ONE (14:53)
[2017-04-23] MEDS ORDERED: HALOPERIDOL LACT 5 MG/ML INJ IVP ONE (15:03)
[2017-04-23] MEDS ORDERED: HYDROmorphONE/DILAUDID 1 MG/ML SYR IVP ONE (17:04)
[2017-04-23] MEDS ORDERED: HYDROmorphONE/DILAUDID 1 MG/ML SYR ONE (17:06)
[2017-04-23] MEDS ORDERED: LORazepam 2 MG/ML INJ IVP PRN (17:28)
[2017-04-23] MEDS ORDERED: ONDANSETRON DISINTEGRATING 4 MG TAB PO PRN (17:28)
[2017-04-23] MEDS ORDERED: ACETAMINOPHEN 325 MG TAB PO PRN (17:28)
[2017-04-23] MEDS ORDERED: PROMETHAZINE HCL 25 MG/ML INJ IVP PRN (17:28)
[2017-04-23] MEDS: NS 1,000 ML IV SCH (18:30)
--- NOTE | 2017-04-23 18:40 | GHP ---
[f rep st] HISTORY AND PHYSICAL DATE OF ADMISSION: 04/23/2017 CHIEF COMPLAINT: Right upper quadrant abdominal pain, nausea and vomiting. HISTORY OF PRESENT ILLNESS: This is a 41-year-old male with a history of ulcerative colitis. He [place] s been on chronic steroids since the beginning of this year. The patient was admitted about 11 days ago for right upper quadrant and right flank pain, associated with nausea and vomiting. He had an abdominal CT which showed some mild pericholecystic fluid and a negative HIDA, but also did show flu id around the appendix, with thickened appendix. He went for appendectomy, which was uncomplicated, and he was discharged home the following day. He states that he felt somewhat better since then, but over the last 5 or 6 days, he has return of h is right upper quadrant pain. It is sharp and radiates to his back. It is worse with inspiration. It is associated with nausea and intermittent vomiting for the last several days, but since yesterd ay morning, it has been continual vomiting. There has been no blood. He has intermittent constipat ion and diarrhea, but no blood. No fevers or chills. He admits to a little bit of shortness of prakash ath. REVIEW OF SYSTEMS: A 10-point review of systems was obtained, and other than stated above was negat veronica. PAST MEDICAL HISTORY: 1. Ulcerative colitis, on chronic steroids. He sees GI of the [facility]. He is also on Remicade fred ry 8 weeks. 2. GERD. FAMILY HISTORY: Coronary artery disease. SOCIAL HISTORY: He does smoke marijuana. No tobacco. PHYSICAL EXAMINATION: VITAL SIGNS: Afebrile. Blood pressure is 119/63, heart rate 70, oxygen satu ration 98% in room air. GENERAL: Patient is well developed, although in distress secondary to vomi ting and pain. HEENT: Nonicteric sclerae. Extraocular movements intact. Dry mucous membranes. N BETITO: Supple. No thyromegaly. LUNGS: Good effort. Clear to auscultation bilaterally. CARDIOVASC ULAR: Regular rate and rhythm. No murmurs or gallops. ABDOMEN: Positive bowel sounds. Soft. Ri ght upper quadrant tenderness, as well as epigastric tenderness. No rebound or guarding. EXTREMITI ES: No clubbing, cyanosis, or edema. SKIN: Without rash. Warm and intact. NEURO: Alert and cristine ented x3. Moving all 4 extremities equally. PSYCH: Normal affect. LABORATORY DATA: White blood cell count a little bit elevated at 14. Chemistry does show an anion gap acidosis, slightly elevated calcium, and elevated bilirubin at 1.5 that is mostly unconjugated. Abdominal CT shows no fluid collection and does show where his appendix was and hepatic cysts. ASSESSMENT AND PLAN: This is a 41-year-old male with a history of ulcerative colitis, on chronic st eroids, presenting with persistent right upper quadrant pain and vomiting after a recent diagnosis o f appendicitis and appendectomy. 1. Right upper quadrant pain: This is actually the pain that he came in with initially. It is unu sual that he did have signs of early appendicitis and had inflammatory changes actually on path. Ho wever, I am not sure if that was really causing his symptoms at that time. He has been on chronic f airly high-dose steroids for some time, and in spite of being on a PPI, I am concerned about ulcer d isease. His HIDA scan is negative. Another consideration would be pulmonary embolism, and we will be getting a D-dimer, although the D-dimer on initial presentation a week ago was normal. He does h ave a small hepatic cyst. He does not have elevation of the liver function tests to suggest portal vein thrombosis. At this point, we would like to control his pain and nausea and vomiting. We will get GI to see the patient as well and consider upper endoscopy. I am going to start him on IV PPI b.i.d. 2. Recent appendicitis, status post appendectomy: There is no fluid collection, and his pain is es sentially right upper quadrant. 3. Depression: I will continue medicines. 4. Chronic steroids: We will continue his prednisone. I am not seeing any signs of adrenal insuff iciency at this time, with normal vital signs. 5. Admission: Patient will be admitted under full admission status. The case was discussed with siri haile ER physician. Old records were reviewed and summarized in the HPI. /[id number]/MODL
[2017-04-23] MEDS: HYDROmorphONE/DILAUDID 1 MG/ML SYR IVP PRN ×2 (19:44→22:14)
[2017-04-23] MEDS: ONDANSETRON 4 MG/2 ML VIAL IVP PRN (19:49)
[2017-04-23] MEDS ORDERED: MAGNESIUM CITRATE 300 ML BOTTLE PO STA (21:42)
[2017-04-23] MEDS: PANTOPRAZOLE SODIUM 40 MG in NS 100 ML IV SCH (22:18)
[2017-04-23 22:40] LABS: COLOR YELLOW; LEUKOCYTE ESTERASE,URINE NEGATIVE (NEGATIVE); NITRITE,URINE NEGATIVE (NEGATIVE)
[2017-04-23 22:46] LABS: MUCUS TRACE /lpf (NONE-1+)
[2017-04-24] MEDS: HYDROmorphONE/DILAUDID 1 MG/ML SYR IVP PRN ×3 (00:15→04:52)
[2017-04-24] MEDS: NS 1,000 ML IV SCH ×2 (00:20→07:45)
[2017-04-24] MEDS: ONDANSETRON 4 MG/2 ML VIAL IVP PRN (04:52)
[2017-04-24] MEDS ORDERED: GOLYTELY 4000 ML BTL PO ONE (05:00)
[2017-04-24 06:11] LABS: % IMMATURE GRANULYOCYTES 1.7 % (0.0-1.1); ABSOLUTE IMMATURE GRANULOCYTES 0.28 10^3/uL (0.00-0.10); ADD DIFF? NO; ADD MORPH? NO; ADD SCAN? NO; ATYPICAL LYMPHOCYTE FLAG 0 (0-99); FRAGMENT RBC FLAG 0 (0-99); HEMATOCRIT 42.6 % (40.0-51.0); HEMOGLOBIN 14.3 g/dL (13.7-17.5); LEFT SHIFT FLG 10 (0-99); LIPEMIA HEMOLYSIS FLAG 80 (0-99); MEAN CELL HEMOGLOBIN CONCENTR. 33.6 g/dL (32.4-36.7); MEAN CELL VOLUME 89.5 fL (81.5-99.8); PLATELET CLUMPS FLAG 0 (0-99); PLATELET COUNT 273 10^3/uL (150-400); RED BLOOD CELL COUNT 4.76 10^6/uL (4.40-6.38); RED CELL DISTRIBUTION WIDTH 12.8 % (11.5-15.2)
[2017-04-24 06:37] LABS: ALANINE AMINOTRANSFERASE 32 IU/L (21-72); ALKALINE PHOSPHATASE 43 IU/L (38-126); ANION GAP 9 mEq/L (8-16); ASPARTATE AMINOTRANSFERASE 24 IU/L (17-59); CALCIUM 9.2 mg/dL (8.5-10.4); CARBON DIOXIDE 21 mEq/l (22-31); CHLORIDE 109 mEq/L (97-110); CREATININE 0.7 mg/dL (0.7-1.3); GLOMERULAR FILTRATION RATE > 60; GLUCOSE 104 mg/dL (70-100); POTASSIUM 4.6 mEq/L (3.5-5.2); SODIUM 139 mEq/L (134-144); TOTAL PROTEIN 6.6 g/dL (6.3-8.2)
[2017-04-24] MEDS: PANTOPRAZOLE SODIUM 40 MG in NS 100 ML IV SCH (07:49)
[2017-04-24] MEDS ORDERED: predniSONE 20 MG TAB PO SCH ×3 (09:00→12:15)
[2017-04-24] MEDS ORDERED: FLUoxetine 20 MG CAP PO SCH (09:00)
[2017-04-24] MEDS ORDERED: ONDANSETRON 4 MG/2 ML VIAL ONE (10:29)
[2017-04-24] MEDS ORDERED: fentaNYL 100 MCG/2 ML INJ ONE (10:29)
[2017-04-24] MEDS ORDERED: DEXAMETHASONE 4 MG/ML VIAL ONE (10:29)
[2017-04-24] MEDS ORDERED: ROCURONIUM 50 MG/5 ML VIAL ONE (10:29)
[2017-04-24] MEDS ORDERED: PROPOFOL 200 MG/20 ML VIAL ONE (10:29)
[2017-04-24] MEDS ORDERED: SUGAMMADEX SODIUM 200 MG/2 ML VIAL IVP ONE (10:29)
[2017-04-24] MEDS ORDERED: LIDOCAINE 2% 5 ML SDV ONE (10:29)
[2017-04-24] MEDS ORDERED: MIDAZOLAM 2 MG/2 ML VIAL ONE (10:34)
[2017-04-24] MEDS ORDERED: PROMETHAZINE HCL 25 MG/ML INJ ONE (11:39)
[2017-04-24] MEDS ORDERED: LOPERAMIDE HCL 2 MG CAP PO PRN (11:57)
[2017-04-24] MEDS ORDERED: DICYCLOMINE 10 MG CAP PO PRN (11:57)
[2017-04-24] MEDS ORDERED: predniSONE 10 MG TAB PO SCH (12:15)
--- NOTE | 2017-04-24 12:58 | GPN ---
[f rep st] PROCEDURE NOTE DATE OF PROCEDURE: 04/24/2017 GASTROINTESTINAL INPATIENT PROCEDURES: 1. Upper endoscopy, with biopsy. 2. Colonoscopy, with biopsy. INDICATION AND PRE-PROCEDURE DIAGNOSIS: History of ulcerative colitis. History of digestive symptoms, including upper abdominal discomfort, nausea. POSTPROCEDURE DIAGNOSIS: A. Upper endoscopy: Normal. Duodenal biopsies were done to rule out celiac disease or other causes of diarrhea (doubt). B. Colonoscopy: Normal. No evidence of active ulcerative colitis. Random biopsies done to rule out microscopic colitis (doubt). PREMEDICATION: As per Anesthesia. COMPLICATIONS: None. FINDINGS: After informed consent was obtained, the patient was placed in the left lateral decubitus position. The video upper endoscope was placed under direct visualization and advanced. The duodenum, stomach, and esophagus were normal. Biopsies as above. The patient's gurney was then turned around. The video pediatric colonoscope was placed in the rectum and advanced to the cecum where the IC valve and appendiceal orifice were seen. Upon slow withdrawal, the colon was normal. No hemorrhoids seen. No colitis seen whatsoever. Random biopsies were done throughout the colon, as above. IMPRESSION: 1. Right upper quadrant pain. Please see my consult note. Almost certainly musculoskeletal (abdominal wall/rib) in origin. 2. Past history of ulcerative colitis. However, no evidence of active ulcerative colitis now. Rather, I suspect his more nonspecific digestive symptoms, such as diarrhea, alternating constipation, feeling of tenesmus, globus, nausea, etc., are functional in nature. I suspect there is a strong psychosomatic and somatization overlay. PLAN: 1. We will let him eat. 2. Buff cap IV. 3. Recommend no narcotics for the above. 4. Tylenol as needed for his rib pain. If this is ineffective, he might possibly benefit from injecting the area with lidocaine/Kenalog via General Surgery. 5. Dicyclomine as needed for abdominal pain. 6. Imodium as needed for diarrhea. 7. We will start to taper off his prednisone, to 35 mg daily. Recommend decreasing every 5 days by 5 mg until none. 8. If no benefit with the above, for his functional digestive symptoms, would then recommend adjusting or adding psychoactive medication, along with counseling; as per hospitalist, his PCP, and psychiatry. I will sign off. I will follow up on his duodenal and colon biopsies, but suspect will be unremarkable. I will also arrange followup with his outpatient zigzag elastic attacher. Thank you for allowing me to help in the care of this patient. Please let me know if we can be of further help in the future. Copy requested to: ____MD Roxanne Dunaway MD Korina Bersentes, MD Era Gutierres____, ANNABEL /[id number]/MODL MTDD
--- NOTE | 2017-04-24 13:03 | GCON ---
[f rep st] CONSULTATION GI INPATIENT CONSULTATION DATE OF CONSULTATION: 04/24/2017 HISTORY OF PRESENT ILLNESS: I was kindly requested to see this patient by Dr. Radha Beckwith in consultation for a chief complaint of abdominal pain. He has had the above now for some time. It is mostly in the right upper quadrant, and he points to a specific spot along his lower rib, near the axilla. This pain can radiate to his back. This pain is worse with movement, bending, twisting, etc. He has tried Tylenol and Excedrin for this, which helps. Besides the above, he can also have occasional epigastric discomfort, diarrhea, alternating constipation, tenesmus, fatigue, a globus sensation in his chest, etc. He has had an extensive, negative workup for the above. This includes an unremarkable ultrasound. HIDA scan negative, including a normal ejection fraction. Normal lipase. Normal liver function tests. Normal cortisol level. Urinalysis negative. He has had multiple CT scans, including for similar symptoms as far back as 2014, which was normal. His CT scan now on this admission is also unremarkable. He did have a recent CT with findings of "early " acute appendicitis, with minimal fluid. He underwent appendectomy. A 2015 upper endoscopy was normal, with normal duodenal biopsies. He has a past history of ulcerative colitis, diagnosed by an outside immersion metalcleaner at [facility] in 2014. Inflammation was seen from the rectum to the splenic flexure. Biopsies returned with mild inflammation. He is followed for this by Era Gutierres and Dr. Eva Muro. He was last seen in the GI office 04/10. He is presently on Remicade every 8 weeks and prednisone 40 mg daily. He has tried Balsalazide for about 1-1/2 weeks, without benefit, so he stopped this. He has tried Canasa in the past, which may have helped with some rectal bleeding. PAST MEDICAL HISTORY: 1. As above. 2. Depression. 3. Otherwise, noncontributory. OUTPATIENT MEDICATIONS: Include the above. He is also on Prozac at 60 mg daily. This is prescribed by his PCP. INPATIENT MEDICATIONS: Include prednisone 40 mg daily, pantoprazole 40 mg IV twice a day, Prozac. ALLERGIES: No known drug allergies. SOCIAL HISTORY: He uses marijuana. He is . His 's name is Kristen. Telephone number [phone]. FAMILY HISTORY: Negative for similar abdominal pain. REVIEW OF SYSTEMS: Positive pertinent review of systems as per my HPI. Otherwise, complete review of systems is negative. CONSTITUTIONAL: GENERAL: Non-toxic appearing gentleman, with a headache. SKIN : Warm, dry. EYES: Pupils equal, round and reactive to light and accommodation. EARS, NOSE, MOUTH AND THROAT: Oropharynx without masses, moist mucosa. CARDIOVASCULAR: Normal S2. Normal PMI. RESPIRATORY: Lungs clear to auscultation and percussion anteriorly. ABDOMEN: Focal pain along his lower right rib, near the axilla. Painful with just minimal abdominal wall pressure. When he does a sit-up, the pain gets much worse (Carnett maneuver). NEUROLOGIC: Grossly nonfocal, cranial nerves grossly intact. PSYCHIATRIC: Orientation, insight appropriate. MUSCULOSKELETAL: Strength grossly normal throughout, normal sensation. LABORATORY DATA: Includes the above. He has had outpatient Remicade levels, which are adequate, with no antibody. 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 January GI path stool sample negative. ASSESSMENT: 1. 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 2. Ulcerative colitis. Hard to say how active or not this is. PLAN: 1. Colonoscopy, to assess activity of his ulcerative colitis. At the same time , will do an upper endoscopy, to make sure no atypical upper G.I. tract structural lesion causing referred upper abdominal pain, but doubt. 2. Further management depending on the above. Thank you for allowing me to help in the care of this patient. /[id number]/MODL MTDD
[2017-04-24 13:12] VITALS: RESP 18
--- NOTE | 2017-04-24 13:56 | HOSPPROG ---
Hospitalist Progress Note Assessment/Plan: 41 yo M w UC here w R sided pain pain: seems more musculoskeletal than GI, especially in light on large GI workup trial of lidocaine patch home today > 30 minutes Subjective: unremarkable upper and lower endoscopy Objective: Vital Signs Temp Pulse Resp BP Pulse Ox 36 C 78 18 109/69 94 04/24/17 12:55 04/24/17 12:55 04/24/17 12:55 04/24/17 12:55 04/24/17 12:55 Laboratory Results 04/24/17 04:57 04/24/17 04:57 04/23/17 04/24/17 04/25/17 05:59 05:59 05:59 Intake Total 1810 600 Output Total 1300 300 Balance 510 300 - Physical Exam Constitutional: no apparent distress, appears nourished Eyes: PERRL Ears, Nose, Mouth, Throat: moist mucous membranes, hearing normal Cardiovascular: regular rate and rhythym, no murmur, rub, or gallop Respiratory: no respiratory distress, no rales or rhonchi Gastrointestinal: normoactive bowel sounds, soft, non-tender abdomen Genitourinary: no bladder fullness, No marks in urethra Skin: warm, normal color Musculoskeletal: full muscle strength, no muscle tenderness Neurologic: AAOx3 ICD10 Worksheet Patient Problems: Problems Problem Status Onset Intractable abdominal pain Acute Intractable vomiting Acute Abdominal pain Acute Chest wall pain Acute Depression Acute Inflammatory bowel disease Acute Suicidal ideation Acute
[2017-04-24] MEDS ORDERED: LIDOCAINE 5% 1 EA PATCH TD SCH (14:00)
--- NOTE | 2017-04-24 14:38 | GDS ---
[f rep st] DISCHARGE SUMMARY DISCHARGE DIAGNOSES: 1. Right flank pain, felt musculoskeletal. 2. Ulcerative colitis. 3. Recent appendectomy. HOSPITAL COURSE: Please see admission history and physical by Dr. Radha Beckwith. Patient presented wi th right-sided pain. He had recently been admitted with similar symptoms and had an appendectomy wh ich showed some evidence of early inflammation. At that time, he had a negative HIDA scan. He underwent upper and lower endoscopy today, which were relatively unremarkable. Biopsies were marbella en by Cheng Bailey MD FACG. He follows up in GI of the [facility]. It was suggested this patient has musculoskeletal pain. He was given trial of lidocaine patch. Res ults of that are still pending. He is discharged home today. /[id number]/MODL
[2017-04-24 19:24] VITALS: BP 114/66; PULSE 95; TEMP 98.3; O2SAT 94
[2017-04-24] MEDS ORDERED: PATCH REMOVAL 1 EA PATCH TD SCH (21:00)
[2017-04-25] MEDS ORDERED: PANTOPRAZOLE SODIUM 40 MG TAB PO SCH (09:00)
== END 2017-04-24 20:55 | disposition left against medical advice (07) | DRG 392 ==
LOC: F1N 17:13 → OBSVTOIN 17:28
PROVIDERS: ADMIT Internal Medicine; ATTEND Internal Medicine
PROC: 0DBE8ZX Excision of Large Intestine, Via Natural or Artificial Opening Endoscopic, Diagnostic (ICD-10-PCS; principal; 2017-04-24 10:00)
PROC: 0DB98ZX Excision of Duodenum, Via Natural or Artificial Opening Endoscopic, Diagnostic (ICD-10-PCS; principal; 2017-04-24 10:00)
DX: R10.11 Right upper quadrant pain (principal); K51.90 Ulcerative colitis, unspecified, without complications; K21.9 Gastro-esophageal reflux disease without esophagitis; F33.9 Major depressive disorder, recurrent, unspecified; Z79.52 Long term (current) use of systemic steroids; Z98.890 Other specified postprocedural states
CPT/HCPCS: 96374; J1100; J1170; J2060; J2250; J2405; J2550; J2704; J2765; J3010; Q9967